=== PATIENT | male | born 1945 ===

== ENCOUNTER 2019-06-24 10:48 | Outpatient (CLI) | payer OTHER | END 2019-06-24 11:00 | disposition home or self-care (01) | LOC: NUCLEAR 10:48 | DX: M79.605 Pain in left leg (principal); M79.604 Pain in right leg; M54.5 Low back pain ==

== ENCOUNTER 2019-06-25 07:31 | Outpatient (CLI) | payer OTHER | END 2019-06-25 08:30 | disposition home or self-care (01) | LOC: NUCLEAR 07:31 | DX: M79.605 Pain in left leg (principal); M79.604 Pain in right leg; I73.9 Peripheral vascular disease, unspecified ==

== ENCOUNTER 2025-01-05 08:50 | Outpatient (CLI) | payer OTHER ==
[~2025-01-05 08:50] MED LIST: MEDROLPACK PO; VOLTAREN ARTHRI20 GM TOP
== END 2025-01-05 08:58 | disposition home or self-care (01) ==
LOC: SONOGRAMA 08:50
PROVIDERS: ATTEND General Practice
DX: N39.0 Urinary tract infection, site not specified (principal); N39.9 Disorder of urinary system, unspecified; R10.9 Unspecified abdominal pain; R35.89 Other polyuria; R19.7 Diarrhea, unspecified

== ENCOUNTER 2025-01-06 09:55 | Outpatient (CLI) | payer OTHER | END 2025-01-06 09:57 | disposition home or self-care (01) | LOC: SONOGRAMA 09:55 | PROVIDERS: ATTEND General Practice | DX: R10.9 Unspecified abdominal pain (principal); N39.0 Urinary tract infection, site not specified; R35.89 Other polyuria; R19.7 Diarrhea, unspecified ==

== ENCOUNTER 2025-01-19 12:07 | Outpatient (CLI) | payer OTHER | END 2025-01-19 12:23 | disposition home or self-care (01) | LOC: MRI 12:07 | PROVIDERS: ATTEND General Practice | DX: R60.9 Edema, unspecified (principal); R60.0 Localized edema; M79.672 Pain in left foot; M25.572 Pain in left ankle and joints of left foot | CPT/HCPCS: 73718 ==